=== PATIENT | male | born 1955 | race Caucasian/White ===

== ENCOUNTER 2019-01-06 17:22 | Emergency (ER) | payer OTHER, SELFPAY ==
[2019-01-06] VITALS (12 sets, daily range): BP systolic 98–126; BP diastolic 52–89; PULSE 52–125; RESP 12–22; O2SAT 94–100; BMI 24.6
--- NOTE | 2019-01-06 17:31 | DI.RAD.S_ITS ---
PROCEDURE: XR CHEST 1V INDICATIONS: chest pain TECHNIQUE: One view of the chest was acquired. COMPARISON: None. FINDINGS: Surgical changes and devices: Surgical clips in the thyroid bed. Lungs and pleura: Lungs are clear. No pleural effusions or pneumothorax. Mediastinum: Mediastinal contours appear normal. Heart size is normal. Bones and chest wall: No suspicious bony lesions. Overlying soft tissues appear unremarkable. IMPRESSION: No acute cardiopulmonary disease. Dictated by: Lucrecia Hernandez M.D. on 01/06/2019 at 17:01 Approved by: Lucrecia Hernandez M.D. on 01/06/2019 at 17:02
[2019-01-06 17:54] LABS: Add Manual Diff / Slide Review NO; Basophils Absolute Auto 0 /uL (0-100); Basophils Percent Auto 0.4 % (0-2); Eosinophils Absolute Auto 100 /uL (0-450); Eosinophils Percent Auto 1.6 % (2-4); Hematocrit 45.8 % (41-53); Hemoglobin 15.5 g/dL (13.5-17.5); Lymphocytes Absolute Auto 2600 /uL (1100-4500); Mean Corpuscular HGB Conc 33.8 % (30-36); Mean Corpuscular Hemoglobin 32.2 PG (26-34); Mean Corpuscular Volume 95.4 fL (80-100); Monocytes Absolute Auto 600 /uL (0-900); Monocytes Percent Auto 7.9 % (3-14); Neutrophils Absolute Auto 4000 /uL (1500-7000); Neutrophils Percent Auto 55.1 % (50-75); Platelet Count 203 X10^3/uL (150-400); Red Cell Distribution Width 12.4 % (11.6-14.8); White Blood Cell Count 7.3 X10^3/uL (4.5-11.0)
[2019-01-06 17:58] LABS: INR 1.1 (0.9-1.3); Prothrombin Time 12.6 SECONDS (10.1-12.7)
[2019-01-06 18:01] LABS: PTT Partial Thromboplastin Tim 35 SECONDS (26.4-36.2)
[2019-01-06 18:02] LABS: Alanine Aminotransferase 26 IU/L (21-72); Albumin 4.4 g/dL (3.5-5.0); Albumin Globulin Ratio 1.3 (1.0-2.8); Alkaline Phosphatase 86 U/L (38-126); Aspartate Aminotransferase 27 IU/L (17-59); BUN Creatinine Ratio 22.5 (6-22); Bilirubin Total 0.5 mg/dL (0.2-1.3); Blood Urea Nitrogen 27 mg/dL (9-20); Calcium 9.6 mg/dL (8.4-10.2); Carbon Dioxide 27 mmol/L (22-32); Chloride 106 mmol/L (98-107); Creatine Kinase 168 U/L (55-170); Estimated Glomerular Filt Rate > 60.0 mL/min (>60); Globulin 3.4 g/dL (1.7-4.1); Glucose 107 mg/dL (80-110); HEMOLYSIS < 15 (0-50); Lipase 142 U/L (23-300); Potassium 3.7 mmol/L (3.4-5.1); Sodium 142 mmol/L (137-145); Total Protein 7.8 g/dL (6.3-8.2)
[2019-01-06 18:14] LABS: Troponin I < 0.012 ng/mL (0.01-0.034)
[2019-01-06 18:18] LABS: CKMB % Relative Index 1.6 % (1.5-5.0); Creatine Kinase MB 2.64 ng/mL (<2.37)
--- NOTE | 2019-01-06 18:22 | ED.ARRPALP ---
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 Initially he developed some anterior chest pressure and was short of breath but his complaint now is largely just palpitations. Patient denies any known history of atrial fibrillation but does state he has had a few episodes of palpitations in the past but never had any definitive diagnosis. He denies any ongoing pain, dizziness, weakness or lightheadedness. He is very certain that his symptoms have been present only for the past few hours. He denies any significant change in his diet such as alcohol, nicotine or caffeine. He denies any new medications. He has been a bit stressed lately and has been traveling back and forth from [facility] and here as they begin to transition to living locally. He admits to briefly trying some vagal maneuvers at home, admittedly without success MD complaint: rapid heart beat and heart racing Onset (ago): hour(s) Duration: constant Severity: moderate Context: occurred during rest Associated symptoms: chest pain and shortness of breath Treatments prior to arrival: vagal maneuvers Related Data Home Medications Medication Instructions Recorded Confirmed levothyroxine 112 mcg PO DAILY 01/06/19 01/06/19 Allergies Allergy/AdvReac Type Severity Reaction Status Date / Time erythromycin base AdvReac Nausea Verified 01/06/19 18:52 Review of Systems Constitutional Denies chills, Denies fever(s), Denies lethargy and Denies weakness Eyes Denies change in vision, Denies eye discharge, Denies irritation and Denies loss of vision ENT Ears, Nose, Mouth, and Throat: Denies change in voice, Denies neck pain and Denies sore throat Cardiovascular Reports chest pain, Reports irregular heart rhythm, Reports lightheadedness, Reports palpitations, Reports dyspnea, Denies dyspnea on exertion and Denies orthopnea Respiratory Denies cough, Reports dyspnea, Denies dyspnea on exertion and Denies wheezing Gastrointestinal Gastrointestinal: Denies abdominal pain, Denies change in bowel habits, Denies diarrhea, Denies nausea and Denies vomiting Genitourinary Denies hematuria, Denies flank pain, Denies urinary incontinence and Denies urinary urgency Musculoskeletal Denies neck pain Integumentary/Breasts Denies pruritus, Denies erythema, Denies rash and Denies wounds Neurologic Denies confusion, Denies loss of vision and Denies weakness Psychiatric Denies anxiety, Denies confusion, Denies depression, Denies homicidal ideation and Denies suicidal ideation Endocrine Reports palpitations Hematologic/Lymphatic Denies easy bruising Allergic/Immunologic Denies wheezing PFSH Medical History Hypothyroid (Acute) Social History (Updated 01/07/19 @ 02:18 by Titi Carrasquillo DO) marital status: household members: spouse lives independently: Yes caregiver/support person: No housing: house education level: other occupational status: employed leisure activities: exercise Social History marital status: household members: spouse lives independently: Yes caregiver/support person: No housing: house education level: other occupational status: employed leisure activities: exercise Exam Narrative Exam Narrative: GENERAL: Well-appearing 63-year-old male, appears younger than stated age, in mild distress HEAD: Atraumatic. Normocephalic. No temporal or scalp tenderness. EYES: Pupils equal round and reactive. Extraocular motions intact. No scleral icterus. No injection or drainage. ENT: Nose without bleeding, purulent drainage or septal hematoma. Throat without erythema, tonsillar hypertrophy or exudate. Uvula midline. Airway patent. NECK: Trachea midline. No JVD or lymphadenopathy. Supple, nontender, no meningeal signs. CARDIOVASCULAR: Tachycardic and without murmurs, gallops, or rubs. RESPIRATORY: Clear to auscultation. Breath sounds equal bilaterally. No wheezes, rales, or rhonchi. GASTROINTESTINAL: Abdomen soft, non-tender, nondistended. No hepato-splenomegaly, or palpable masses. No guarding. EXTREMITIES: No clubbing, cyanosis, or edema. No joint tenderness, effusion, or edema noted. BACK: Nontender without deformity or crepitance. No flank tenderness. NEURO: AOx3. SKIN: No rash or erythema. Initial Vital Signs Initial Vital Signs: Vital Signs Pulse Rate 121 H 01/06/19 17:25 Respiratory Rate 16 01/06/19 17:25 Pulse Oximetry 97 07/12/19 17:25 Procedures Cardioversion Consent Signed: Yes Indication: rapid A Fib Cardiac rhythm prior to cardioversion: rapid A fib Stability: Stable Number of attempts (shocks): 1 Joules used: 150 Cardiac rhythm post-cardioversion: NSR Procedural Sedation Patient Age: Patient is 5yrs or older Consent signed: Yes Time out performed: Yes Indication: cardioversion ASA Class: II Mallampati Airway Classification: Class II Preparation: wire mesh knitter applied, pulse oximeter, capnometry used, suction/airway equipment at bedside and IV secured IV Propofol dose (mg): 90 Intraservice time/total sedation time (min): 10 ED Sedation Level: Moderate (Concious) Patient Tolerated Procedure: Well Complications: hypoxia Interventions: Airway repositioned Scores CHADS-VASc Congestive heart failure: no Hypertension: no Age 75 years or older: no Diabetes mellitus: no Stroke, TIA, or TE: no Vascular disease: no Age 65 to 74 years: no Sex category (female): Male CHADS-VASc Score: 0 Course Orders Ordered: ED Orders 01/06/19 17:31 XR chest 1V Stat EKG-12 Lead Stat 01/06/19 17:35 Complete Blood Count AUTO DIFF Stat Comprehensive Metabolic Panel Stat Lipase Stat Partial Thromboplastin Time Stat Prothrombin Time INR Stat Troponin & CK Cardiac Panel Stat Discontinued Medications Diltiazem HCl (Cardizem) 10 mg IV NOW ONE Stop: 01/06/19 18:44 Last Admin: 01/06/19 18:40 Dose: 10 mg Propofol (Diprivan) 90 mg IV NOW ONE Stop: 01/06/19 19:51 Last Admin: 01/06/19 20:14 Dose: 90 mg Reevaluation(s) Reevaluation #1: Patient remained in a a rapid atrial fibrillation after a strong attempt at a modified Valsalva maneuver. Discussion with patient and his at the bedside regarding electrocardioversion and procedural sedation Vital Signs - 8 hr 01/06/19 18:40 01/06/19 18:55 01/06/19 19:30 Pulse Rate 105 H 77 122 H Respiratory Rate 16 18 Blood Pressure 126/89 Blood Pressure [Left Arm] 111/77 107/82 Pulse Oximetry 99 100 01/06/19 19:35 01/06/19 19:40 01/06/19 19:45 Pulse Rate 125 H 61 77 Respiratory Rate 16 18 18 Blood Pressure Blood Pressure [Left Arm] 107/52 L 103/63 102/52 L Pulse Oximetry 100 94 99 01/06/19 19:50 01/06/19 19:55 01/06/19 20:00 Pulse Rate 57 L 54 L 56 L Respiratory Rate 16 16 22 Blood Pressure Blood Pressure [Left Arm] 103/73 98/77 112/76 Pulse Oximetry 98 97 98 01/06/19 20:05 01/06/19 20:10 Pulse Rate 55 L 52 L Respiratory Rate 21 12 Blood Pressure Blood Pressure [Left Arm] 120/80 108/83 Pulse Oximetry 98 98 MDM - Arrhythmia/Palpitations Lab Data Result diagrams: 01/06/19 17:35 01/06/19 17:35 Lab Results 01/06/19 01/06/19 01/06/19 Range/Units 17:35 17:35 17:35 WBC 7.3 (4.5-11.0) X10^3/uL RBC 4.80 (4.5-5.9) X10^6/uL Hgb 15.5 (13.5-17.5) g/dL Hct 45.8 (41-53) % MCV 95.4 (80-100) fL MCH 32.2 (26-34) PG MCHC 33.8 (30-36) % RDW 12.4 (11.6-14.8) % Plt Count 203 (150-400) X10^3/uL Neut % (Auto) 55.1 (50-75) % Lymph % (Auto) 35.0 (25-40) % Moffat % (Auto) 7.9 (3-14) % Eos % (Auto) 1.6 L (2-4) % Baso % (Auto) 0.4 (0-2) % Neut # (Auto) 4000 (4004-4234) /uL Lymph # (Auto) 2600 (3002-8889) /uL M[place]at # (Auto) 600 (0-900) /uL Eos # (Auto) 100 (0-450) /uL Baso # (Auto) 0 (0-100) /uL PT 12.6 (10.1-12.7) SECONDS INR 1.1 (0.9-1.3) APTT 35 (26.4-36.2) SECONDS Sodium 142 (137-145) mmol/L Potassium 3.7 (3.4-5.1) mmol/L Chloride 106 (98-107) mmol/L Carbon Dioxide 27 (22-32) mmol/L BUN 27 H (9-20) mg/dL Creatinine 1.20 (0.66-1.25) mg/dL Estimated GFR > 60.0 (>60) mL/min BUN/Creatinine Ratio 22.5 H (6-22) Glucose 107 (80-110) mg/dL Calcium 9.6 (8.4-10.2) mg/dL Total Bilirubin 0.5 (0.2-1.3) mg/dL AST 27 (17-59) IU/L ALT 26 (21-72) IU/L Alkaline Phosphatase 86 (38-126) U/L Total Creatine Kinase 168 (55-170) U/L CK-MB (CK-2) 2.64 H (<2.37) ng/mL CK-MB (CK-2) Rel Index 1.6 (1.5-5.0) % Troponin I < 0.012 (0.01-0.034) ng/mL Total Protein 7.8 (6.3-8.2) g/dL Albumin 4.4 (3.5-5.0) g/dL Globulin 3.4 (1.7-4.1) g/dL Albumin/Globulin Ratio 1.3 (1.0-2.8) Lipase 142 (23-300) U/L Imaging Data Chest x-ray: Radiologist's impression: [address] [address] XRay Report Signed Patient: Zhou Mcnamara EMR#: [id number] : 6Acct:[id number] Age/Sex: 63 / MDate of Service: 01/06/19 Loc: ED Accession Number: [id number] Procedure: XR chest 1V Ordering Provider: Anabel Boland D.O. PROCEDURE: XR CHEST 1V INDICATIONS: chest pain TECHNIQUE: One view of the chest was acquired. COMPARISON: None. FINDINGS: Surgical changes and devices: Surgical clips in the thyroid bed. Lungs and pleura: Lungs are clear. No pleural effusions or pneumothorax. Mediastinum: Mediastinal contours appear normal. Heart size is normal. Bones and chest wall: No suspicious bony lesions. Overlying soft tissues appear unremarkable. IMPRESSION: No acute cardiopulmonary disease. Dictated by: Lucrecia Hernandez M.D. on 01/06/2019 at 17:01 Approved by: Lucrecia Hernandez M.D. on 01/06/2019 at 17:02 ECG Data Attestation: I personally reviewed and interpreted this ECG as follows: Interpretation: Rapid A Fib at 114 without ischemic change, no ST depressions or elevations Discharge Plan Departure Patient Disposition: Home Clinical Impression: Atrial fibrillation Qualifiers: Atrial fibrillation type: paroxysmal Qualified Code(s): I48.0 - Paroxysmal atrial fibrillation Discharge Date/Time: 01/06/19 20:31 Interventions: ED Discharge Assessment Last Done: 01/06/19 20:29 Instructions: DI for Atrial Fibrillation Activity Restrictions/Additional Instructions: *You have been diagnosed with [paroxysmal atrial fibrillation status post cardioversion] *What to do: *Take medications as directed *Follow up with your primary care provider in 2-3 days, call for an appointment. Let them know you were seen in the Emergency Department and that we ask that you be seen in follow up. I have included contact information for the hospital resource line to help you establish care locally *Return to ER if you should have any new, worsening or concerning symptoms, such as [ ] Prescriptions: No Action levothyroxine 112 mcg tablet 112 mcg PO DAILY RF: 0 Referrals: [facility] [Outside]
[2019-01-06] MEDS: dilTIAZem 5 MG/ML SDV 10 MG IV (18:40)
[2019-01-06] MEDS: PROPOFOL 200 MG/20 ML VIAL 90 MG IV (20:14)
--- NOTE | 2019-01-06 20:19 | ED_ITS ---
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 Initially he developed some anterior chest pressure and was short of breath but his complaint now is largely just palpitations. Patient denies any known history of atrial fibrillation but does state he has had a few episodes of palpitations in the past but never had any definitive diagnosis. He denies any ongoing pain, dizziness, weakness or lightheadedness. He is very certain that his symptoms have been present only for the past few hours. He denies any significant change in his diet such as alcohol, nicotine or caffeine. He denies any new medications. He has been a bit stressed lately and has been traveling back and forth from [facility] and here as they begin to transition to living locally. He admits to briefly trying some vagal maneuvers at home, admittedly without success MD complaint: rapid heart beat and heart racing Onset (ago): hour(s) Duration: constant Severity: moderate Context: occurred during rest Associated symptoms: chest pain and shortness of breath Treatments prior to arrival: vagal maneuvers Related Data Home Medications Medication Instructions Recorded Confirmed levothyroxine 112 mcg PO DAILY 01/06/19 01/06/19 Allergies Allergy/AdvReac Type Severity Reaction Status Date / Time erythromycin base AdvReac Nausea Verified 01/06/19 18:52 Review of Systems Constitutional Denies chills, Denies fever(s), Denies lethargy and Denies weakness Eyes Denies change in vision, Denies eye discharge, Denies irritation and Denies loss of vision ENT Ears, Nose, Mouth, and Throat: Denies change in voice, Denies neck pain and Denies sore throat Cardiovascular Reports chest pain, Reports irregular heart rhythm, Reports lightheadedness, Reports palpitations, Reports dyspnea, Denies dyspnea on exertion and Denies orthopnea Respiratory Denies cough, Reports dyspnea, Denies dyspnea on exertion and Denies wheezing Gastrointestinal Gastrointestinal: Denies abdominal pain, Denies change in bowel habits, Denies diarrhea, Denies nausea and Denies vomiting Genitourinary Denies hematuria, Denies flank pain, Denies urinary incontinence and Denies urinary urgency Musculoskeletal Denies neck pain Integumentary/Breasts Denies pruritus, Denies erythema, Denies rash and Denies wounds Neurologic Denies confusion, Denies loss of vision and Denies weakness Psychiatric Denies anxiety, Denies confusion, Denies depression, Denies homicidal ideation and Denies suicidal ideation Endocrine Reports palpitations Hematologic/Lymphatic Denies easy bruising Allergic/Immunologic Denies wheezing PFSH Medical History Hypothyroid (Acute) Social History (Updated 01/07/19 @ 02:18 by Titi Carrasquillo DO) marital status: household members: spouse lives independently: Yes caregiver/support person: No housing: house education level: other occupational status: employed leisure activities: exercise Social History marital status: household members: spouse lives independently: Yes caregiver/support person: No housing: house education level: other occupational status: employed leisure activities: exercise Exam Narrative Exam Narrative: GENERAL: Well-appearing 63-year-old male, appears younger than stated age, in mild distress HEAD: Atraumatic. Normocephalic. No temporal or scalp tenderness. EYES: Pupils equal round and reactive. Extraocular motions intact. No scleral icterus. No injection or drainage. ENT: Nose without bleeding, purulent drainage or septal hematoma. Throat without erythema, tonsillar hypertrophy or exudate. Uvula midline. Airway patent. NECK: Trachea midline. No JVD or lymphadenopathy. Supple, nontender, no meningeal signs. CARDIOVASCULAR: Tachycardic and without murmurs, gallops, or rubs. RESPIRATORY: Clear to auscultation. Breath sounds equal bilaterally. No wheezes, rales, or rhonchi. GASTROINTESTINAL: Abdomen soft, non-tender, nondistended. No hepato- splenomegaly, or palpable masses. No guarding. EXTREMITIES: No clubbing, cyanosis, or edema. No joint tenderness, effusion, or edema noted. BACK: Nontender without deformity or crepitance. No flank tenderness. NEURO: AOx3. SKIN: No rash or erythema. Initial Vital Signs Initial Vital Signs: Vital Signs Pulse Rate 121 H 01/06/19 17:25 Respiratory Rate 16 01/06/19 17:25 Pulse Oximetry 97 07/12/19 17:25 Procedures Cardioversion Consent Signed: Yes Indication: rapid A Fib Cardiac rhythm prior to cardioversion: rapid A fib Stability: Stable Number of attempts (shocks): 1 Joules used: 150 Cardiac rhythm post-cardioversion: NSR Procedural Sedation Patient Age: Patient is 5yrs or older Consent signed: Yes Time out performed: Yes Indication: cardioversion ASA Class: II Mallampati Airway Classification: Class II Preparation: site monitor applied, pulse oximeter, capnometry used, suction/airway equipment at bedside and IV secured IV Propofol dose (mg): 90 Intraservice time/total sedation time (min): 10 ED Sedation Level: Moderate (Concious) Patient Tolerated Procedure: Well Complications: hypoxia Interventions: Airway repositioned Scores CHADS-VASc Congestive heart failure: no Hypertension: no Age 75 years or older: no Diabetes mellitus: no Stroke, TIA, or TE: no Vascular disease: no Age 65 to 74 years: no Sex category (female): Male CHADS-VASc Score: 0 Course Orders Ordered: ED Orders 01/06/19 17:31 XR chest 1V Stat EKG-12 Lead Stat 01/06/19 17:35 Complete Blood Count AUTO DIFF Stat Comprehensive Metabolic Panel Stat Lipase Stat Partial Thromboplastin Time Stat Prothrombin Time INR Stat Troponin & CK Cardiac Panel Stat Discontinued Medications Diltiazem HCl (Cardizem) 10 mg IV NOW ONE Stop: 01/06/19 18:44 Last Admin: 01/06/19 18:40 Dose: 10 mg Propofol (Diprivan) 90 mg IV NOW ONE Stop: 01/06/19 19:51 Last Admin: 01/06/19 20:14 Dose: 90 mg Reevaluation(s) Reevaluation #1: Patient remained in a a rapid atrial fibrillation after a strong attempt at a modified Valsalva maneuver. Discussion with patient and his at the bedside regarding electrocardioversion and procedural sedation Vital Signs - 8 hr 01/06/19 18:40 01/06/19 18:55 01/06/19 19:30 Pulse Rate 105 H 77 122 H Respiratory Rate 16 18 Blood Pressure 126/89 Blood Pressure [Left Arm] 111/77 107/82 Pulse Oximetry 99 100 01/06/19 19:35 01/06/19 19:40 01/06/19 19:45 Pulse Rate 125 H 61 77 Respiratory Rate 16 18 18 Blood Pressure Blood Pressure [Left Arm] 107/52 L 103/63 102/52 L Pulse Oximetry 100 94 99 01/06/19 19:50 01/06/19 19:55 01/06/19 20:00 Pulse Rate 57 L 54 L 56 L Respiratory Rate 16 16 22 Blood Pressure Blood Pressure [Left Arm] 103/73 98/77 112/76 Pulse Oximetry 98 97 98 01/06/19 20:05 01/06/19 20:10 Pulse Rate 55 L 52 L Respiratory Rate 21 12 Blood Pressure Blood Pressure [Left Arm] 120/80 108/83 Pulse Oximetry 98 98 MDM - Arrhythmia/Palpitations Lab Data Result diagrams: 01/06/19 17:35 01/06/19 17:35 Lab Results 01/06/19 01/06/19 01/06/19 Range/Units 17:35 17:35 17:35 WBC 7.3 (4.5-11.0) X10^3/uL RBC 4.80 (4.5-5.9) X10^6/uL Hgb 15.5 (13.5-17.5) g/dL Hct 45.8 (41-53) % MCV 95.4 (80-100) fL MCH 32.2 (26-34) PG MCHC 33.8 (30-36) % RDW 12.4 (11.6-14.8) % Plt Count 203 (150-400) X10^3/uL Neut % (Auto) 55.1 (50-75) % Lymph % (Auto) 35.0 (25-40) % [place] % (Auto) 7.9 (3-14) % Eos % (Auto) 1.6 L (2-4) % Baso % (Auto) 0.4 (0-2) % Neut # (Auto) 4000 (8447-9963) /uL Lymph # (Auto) 2600 (9632-9120) /uL [place]ill # (Auto) 600 (0-900) /uL Eos # (Auto) 100 (0-450) /uL Baso # (Auto) 0 (0-100) /uL PT 12.6 (10.1-12.7) SECONDS INR 1.1 (0.9-1.3) APTT 35 (26.4-36.2) SECONDS Sodium 142 (137-145) mmol/L Potassium 3.7 (3.4-5.1) mmol/L Chloride 106 (98-107) mmol/L Carbon Dioxide 27 (22-32) mmol/L BUN 27 H (9-20) mg/dL Creatinine 1.20 (0.66-1.25) mg/dL Estimated GFR > 60.0 (>60) mL/min BUN/Creatinine Ratio 22.5 H (6-22) Glucose 107 (80-110) mg/dL Calcium 9.6 (8.4-10.2) mg/dL Total Bilirubin 0.5 (0.2-1.3) mg/dL AST 27 (17-59) IU/L ALT 26 (21-72) IU/L Alkaline Phosphatase 86 (38-126) U/L Total Creatine Kinase 168 (55-170) U/L CK-MB (CK-2) 2.64 H (<2.37) ng/mL CK-MB (CK-2) Rel Index 1.6 (1.5-5.0) % Troponin I < 0.012 (0.01-0.034) ng/mL Total Protein 7.8 (6.3-8.2) g/dL Albumin 4.4 (3.5-5.0) g/dL Globulin 3.4 (1.7-4.1) g/dL Albumin/Globulin Ratio 1.3 (1.0-2.8) Lipase 142 (23-300) U/L Imaging Data Chest x-ray: Radiologist's impression: [address] [address] XRay Report Signed Patient: Zhou Mcnamara EMR#: [id number] : 6Acct:[id number] Age/Sex: 63 / MDate of Service: 01/06/19 Loc: ED Accession Number: [id number] Procedure: XR chest 1V Ordering Provider: Anabel Boland D.O. PROCEDURE: XR CHEST 1V INDICATIONS: chest pain TECHNIQUE: One view of the chest was acquired. COMPARISON: None. FINDINGS: Surgical changes and devices: Surgical clips in the thyroid bed. Lungs and pleura: Lungs are clear. No pleural effusions or pneumothorax. Mediastinum: Mediastinal contours appear normal. Heart size is normal. Bones and chest wall: No suspicious bony lesions. Overlying soft tissues appear unremarkable. IMPRESSION: No acute cardiopulmonary disease. Dictated by: Lucrecia Hernandez M.D. on 01/06/2019 at 17:01 Approved by: Lucrecia Hernandez M.D. on 01/06/2019 at 17:02 ECG Data Attestation: I personally reviewed and interpreted this ECG as follows: Interpretation: Rapid A Fib at 114 without ischemic change, no ST depressions or elevations Discharge Plan Departure Patient Disposition: Home Clinical Impression: Atrial fibrillation Qualifiers: Atrial fibrillation type: paroxysmal Qualified Code(s): I48.0 - Paroxysmal atrial fibrillation Discharge Date/Time: 01/06/19 20:31 Interventions: ED Discharge Assessment Last Done: 01/06/19 20:29 Instructions: DI for Atrial Fibrillation Activity Restrictions/Additional Instructions: *You have been diagnosed with [paroxysmal atrial fibrillation status post cardioversion] *What to do: *Take medications as directed *Follow up with your primary care provider in 2-3 days, call for an appointment. Let them know you were seen in the Emergency Department and that we ask that you be seen in follow up. I have included contact information for the hospital resource line to help you establish care locally *Return to ER if you should have any new, worsening or concerning symptoms, such as [ ] Prescriptions: No Action levothyroxine 112 mcg tablet 112 mcg PO DAILY RF: 0 Referrals: [facility] [Outside]
== END 2019-01-06 20:31 | disposition home or self-care (01) ==
PROVIDERS: Emergency Medicine; Emergency Provider Emergency Medicine
DX: I48.91 Unspecified atrial fibrillation (principal)
CPT/HCPCS: 36591; 71045; 80053; 82550; 82553; 83690; 84484; 85025; 85610; 85730; 92960; 93005; 93041; 94770; 96374; 96375; 99284; 99291; J2704

== ENCOUNTER → 2019-06-19 10:36 | Outpatient (CLI) | payer OTHER, SELFPAY ==
--- NOTE | 2019-06-19 | DI.RAD.S_ITS ---
PROCEDURE: XR PELVIS 1-2V INDICATIONS: LOW BACK PAIN TECHNIQUE: 1 view(s) of the pelvis acquired. COMPARISON: None. FINDINGS: Bones: No fractures or dislocations. No suspicious bony lesions. There are mild degenerative changes of the imaged lower lumbosacral spine Soft tissues: Visualized bowel gas pattern is nonobstructive. IMPRESSION: Mild degenerative changes of the imaged lower lumbosacral spine. Dictated by: Marco Pérez M.D. on 06/19/2019 at 17:53 Approved by: Marco Pérez M.D. on 06/19/2019 at 17:56
--- NOTE | 2019-06-19 | DI.RAD.S_ITS ---
PROCEDURE: XR LUMBAR SPINE 2-3V INDICATIONS: LOW BACK PAIN TECHNIQUE: 3 views of the lumbar spine were acquired. COMPARISON: Same day pelvic radiograph. FINDINGS: Bones: 5 [id number] vertebrae are present. Mild levoscoliosis. No vertebral body compression fractures. Question of L5 pars defect. No significant spondylolisthesis. L5 facet hypertrophy. Mild degenerative change. No suspicious bony lesions. Soft tissues: Overlying bowel gas pattern is normal. No suspicious soft tissue calcifications. IMPRESSION: No acute osseous abnormality. Dictated by: Zhou Lo M.D. on 06/19/2019 at 17:49 Approved by: Zhou Lo M.D. on 06/19/2019 at 17:51
== END ==
PROVIDERS: Visit Provider Internal Medicine
DX: M54.5 Low back pain (principal); M47.817 Spondylosis without myelopathy or radiculopathy, lumbosacral region; I48.91 Unspecified atrial fibrillation
CPT/HCPCS: 72100; 72170

== ENCOUNTER → 2019-07-06 09:31 | Outpatient (CLI) | payer OTHER, SELFPAY | PROVIDERS: PCP Internal Medicine; Visit Provider Internal Medicine Cardiovascular Disease | DX: R00.2 Palpitations (principal); I48.91 Unspecified atrial fibrillation; R00.1 Bradycardia, unspecified | CPT/HCPCS: 36415; 83735 ==

== ENCOUNTER → 2019-11-09 08:02 | Outpatient (CLI) | payer OTHER, SELFPAY ==
[2019-11-09 10:26] LABS: HIV 1 & 2 Ab/Ag 4th Gen Combo NEGATIVE (NEGATIVE); Hep C Virus Ab w/Reflex Quant NEGATIVE s/c (NEGATIVE)
== END ==
PROVIDERS: PCP Internal Medicine; Referring Provider Internal Medicine; Visit Provider Internal Medicine
DX: Z00.00 Encounter for general adult medical examination without abnormal findings (principal)
CPT/HCPCS: 36415; 86803; 87389

== ENCOUNTER → 2020-04-10 19:23 | Outpatient (ROUT) | payer OTHER, SELFPAY ==
[2020-04-10 19:43] LABS: Aspartate Aminotransferase 30 IU/L (17-59); BUN Creatinine Ratio 22.1 (6-22); Blood Urea Nitrogen 25 mg/dL (9-20); Calcium 9.9 mg/dL (8.4-10.2); Carbon Dioxide 30 mmol/L (22-32); Chloride 104 mmol/L (98-107); Cholesterol 190 mg/dL (140-199); Estimated Glomerular Filt Rate > 60.0 mL/min (>60); Glucose 89 mg/dL (80-110); HDL Cholesterol 43 mg/dL (40-60); HEMOLYSIS < 15 (0-50); LDL Cholesterol Calculated 112 mg/dL (<100); Potassium 4.4 mmol/L (3.4-5.1); Sodium 141 mmol/L (137-145); Triglycerides 176 mg/dL (35-150)
[2020-04-10 20:12] LABS: Prostate Specific Antigen 0.187 ng/mL (0.10-4.00); TSH w/ Reflex to FT4 0.13 uIU/mL (0.47-4.68)
[2020-04-10 20:41] LABS: Free T4, Direct Thyroxine 1.33 ng/dL (0.78-2.19)
== END ==
PROVIDERS: PCP Internal Medicine; Visit Provider Internal Medicine
DX: E03.9 Hypothyroidism, unspecified (principal); E78.2 Mixed hyperlipidemia; I48.91 Unspecified atrial fibrillation
CPT/HCPCS: 80048; 80061; 84153; 84439; 84443; 84450

== ENCOUNTER → 2020-04-15 08:04 | Outpatient (CLI) | payer OTHER, SELFPAY ==
[2020-04-15 09:53] LABS: TSH w/ Reflex to FT4 0.12 uIU/mL (0.47-4.68)
[2020-04-15 10:18] LABS: Free T4, Direct Thyroxine 1.31 ng/dL (0.78-2.19)
== END ==
PROVIDERS: PCP Internal Medicine; Referring Provider Internal Medicine; Visit Provider Internal Medicine
DX: E03.9 Hypothyroidism, unspecified (principal)
CPT/HCPCS: 36415; 84439; 84443

== ENCOUNTER → 2020-05-02 07:47 | Outpatient (CLI) | payer OTHER, SELFPAY ==
[2020-05-02 09:59] LABS: Prolactin 8.5 ng/mL (3.7-17.9)
[2020-05-02 10:38] LABS: Free T3, Triiodothyronine Free 3.28 pg/mL (2.77-5.27); Free T4, Direct Thyroxine 1.11 ng/dL (0.78-2.19); T4 Total Thyroxine 8.47 ug/dL (5.5-11.0); Triiodothryronine T3 Uptake 34.5 % (23.5-40.5)
[2020-05-02 10:51] LABS: Thyroid Stimulating Hormone 0.347 uIU/mL (0.47-4.68)
== END ==
PROVIDERS: PCP Internal Medicine; Referring Provider Internal Medicine; Visit Provider Internal Medicine
DX: E78.2 Mixed hyperlipidemia (principal); I48.91 Unspecified atrial fibrillation; E03.9 Hypothyroidism, unspecified
CPT/HCPCS: 36415; 84146; 84436; 84439; 84443; 84479; 84481

== ENCOUNTER → 2020-06-13 08:44 | Outpatient (CLI) | payer OTHER, SELFPAY ==
[2020-06-13 11:03] LABS: TSH w/ Reflex to FT4 1.66 uIU/mL (0.47-4.68)
== END ==
PROVIDERS: PCP Internal Medicine; Referring Provider Internal Medicine; Visit Provider Internal Medicine
DX: E03.9 Hypothyroidism, unspecified (principal)
CPT/HCPCS: 36415; 84443

== ENCOUNTER → 2020-08-12 13:29 | Outpatient (CLI) | payer OTHER, SELFPAY ==
[2020-08-12 16:01] LABS: TSH w/ Reflex to FT4 1.21 uIU/mL (0.47-4.68)
== END ==
PROVIDERS: PCP Internal Medicine; Referring Provider Internal Medicine; Visit Provider Internal Medicine
DX: E03.9 Hypothyroidism, unspecified (principal)
CPT/HCPCS: 36415; 84443

== ENCOUNTER → 2020-10-14 10:13 | Outpatient (CLI) | payer OTHER, SELFPAY ==
[2020-10-14 11:59] LABS: COVID19 - ADMIT (NP swab/PCR) Negative (Negative)
== END ==
PROVIDERS: PCP Internal Medicine; Visit Provider Student in an Organized Health Care Education/Training Program
DX: Z20.822 Contact with and (suspected) exposure to COVID-19 (principal)
CPT/HCPCS: U0003

== ENCOUNTER → 2020-10-28 18:46 | Outpatient (ROUT) | payer OTHER, SELFPAY ==
[2020-10-28 20:10] LABS: TSH w/ Reflex to FT4 1.96 uIU/mL (0.47-4.68)
== END ==
PROVIDERS: PCP Internal Medicine; Visit Provider Internal Medicine
DX: E03.9 Hypothyroidism, unspecified (principal)
CPT/HCPCS: 84443

== ENCOUNTER 2021-05-20 12:29 | Emergency (ER) | payer OTHER, SELFPAY ==
[2021-05-20 12:44] VITALS: BP 146/82; PULSE 70; RESP 18; TEMP 36.2; O2SAT 99
--- NOTE | 2021-05-20 13:02 | DI.RAD.S_ITS ---
PROCEDURE: XR CHEST 1V INDICATIONS: pain w/ deep inspiration, upper abd pain TECHNIQUE: One view of the chest was acquired. COMPARISON: [facility], CR, XR CHEST 1V, 01/06/2019, 17:48. FINDINGS: Surgical changes and devices: Stable appearance of surgical clips in the thyroid bed. Lungs and pleura: Lungs are clear. No pleural effusions or pneumothorax. Mediastinum: Mediastinal contours appear normal. Heart size is normal. Bones and chest wall: No suspicious bony lesions. Overlying soft tissues appear unremarkable. IMPRESSION: Stable radiographic evaluation of the chest without acute cardiopulmonary abnormalities or focal airspace disease. Dictated by: Antonio Rosario M.D. on 05/20/2021 at 13:54 Approved by: Antonio Rosraio M.D. on 05/20/2021 at 13:55
[2021-05-20 13:03] VITALS: BP 133/77; PULSE 56; RESP 15; O2SAT 97
[2021-05-20 13:06] LABS: Add Manual Diff / Slide Review NO; Basophils Absolute Auto 0 /uL (0-100); Basophils Percent Auto 0.5 % (0-2); Eosinophils Absolute Auto 100 /uL (0-450); Eosinophils Percent Auto 1.2 % (2-4); Hematocrit 45.4 % (41-53); Hemoglobin 15.4 g/dL (13.5-17.5); Lymphocytes Absolute Auto 1600 /uL (1100-4500); Lymphocytes Percent Auto 30.9 % (25-40); Mean Corpuscular Hemoglobin 31.9 PG (26-34); Mean Corpuscular Volume 94.1 fL (80-100); Monocytes Absolute Auto 300 /uL (0-900); Monocytes Percent Auto 6.1 % (3-14); Neutrophils Absolute Auto 3300 /uL (1500-7000); Neutrophils Percent Auto 61.3 % (50-75); Platelet Count 200 X10^3/uL (150-400); Red Blood Cell Count 4.83 X10^6/uL (4.5-5.9); Red Cell Distribution Width 11.8 % (11.6-14.8); White Blood Cell Count 5.3 X10^3/uL (4.5-11.0)
[2021-05-20 13:16] LABS: INR 1.1 (0.9-1.3); Prothrombin Time 12.7 SECONDS (10.1-12.7)
[2021-05-20 13:19] LABS: PTT Partial Thromboplastin Tim 35 SECONDS (26.4-36.2)
[2021-05-20 13:21] LABS: D Dimer < 200 ng/mL (<230)
[2021-05-20 13:24] LABS: Alanine Aminotransferase 27 IU/L (<50); Albumin 4.4 g/dL (3.5-5.0); Albumin Globulin Ratio 1.5 (1.0-2.8); Alkaline Phosphatase 66 U/L (38-126); Aspartate Aminotransferase 35 IU/L (17-59); BUN Creatinine Ratio 12.1 (6-22); Bilirubin Total 0.5 mg/dL (0.2-1.3); Blood Urea Nitrogen 13 mg/dL (9-20); Calcium 9.3 mg/dL (8.4-10.2); Carbon Dioxide 26 mmol/L (22-32); Chloride 106 mmol/L (98-107); Creatine Kinase 127 U/L (55-170); Estimated Glomerular Filt Rate > 60.0 mL/min (>60); Glucose 105 mg/dL (80-110); Lipase 100 U/L (23-300); Potassium 4.1 mmol/L (3.4-5.1); Sodium 139 mmol/L (137-145); Total Protein 7.4 g/dL (6.3-8.2)
[2021-05-20 13:25] LABS: Magnesium 2.2 mg/dL (1.6-2.3)
[2021-05-20 13:26] LABS: HEMOLYSIS 53 (0-50)
[2021-05-20 13:30] VITALS: BP 126/72; PULSE 56; RESP 16; O2SAT 97
[2021-05-20 13:34] LABS: Troponin I < 0.012 ng/mL (0.01-0.034)
[2021-05-20 14:00] VITALS: BP 129/71; PULSE 56; RESP 15; O2SAT 98
[2021-05-20] MEDS: KETOROLAC 30 MG/ML VIAL 15 MG IV (14:16)
[2021-05-20 14:30] VITALS: BP 132/77; PULSE 51; RESP 15; O2SAT 97
[2021-05-20 15:00] VITALS: BP 133/78; PULSE 51; RESP 14; O2SAT 98
--- NOTE | 2021-05-27 10:38 | ED_ITS ---
HPI - Abdominal Pain <Aarti Gee PA-C - Last Filed: 05/27/21 10:54> General Chief Complaint: Abdominal Pain Stated Complaint: abdomnial pain Time Seen by Provider: 05/20/21 13:00 Source: patient Mode of arrival: Ambulatory Limitations: no limitations History of Present Illness HPI narrative: 65-year-old male with past medical history hypothyroidism presents to the ED with 3 days of upper abdominal pain. Patient states that the pains spans across his upper abdomen. pain is aggravated with movements such is crunches, twisting. Relieved by rest. Patient states that he has recently started new physical activities including biking and abdominal crunches. Patient denies fever, chills, chest pain, cough, shortness of breath, nausea, vomiting, flank pain, dysuria, lightheadedness, dizziness, syncope. Patient has not tried taking any medications for his symptoms. Related Data Home Medications Medication Instructions Recorded Confirmed levothyroxine 112 mcg tablet 112 mcg PO DAILY 01/06/19 05/20/21 clopidogrel 75 mg tablet (Plavix) 75 mg PO DAILY 05/20/21 05/20/21 gabapentin 100 mg capsule 100 mg PO DAILY 05/20/21 05/20/21 metoprolol succinate 25 mg 25 mg PO DAILY 05/20/21 05/20/21 tablet,extended release 24 hr Allergies Allergy/AdvReac Type Severity Reaction Status Date / Time erythromycin base AdvReac Nausea Verified 05/20/21 12:07 Review of Systems <Aarti Gee PA-C - Last Filed: 05/27/21 10:54> Review of Systems ROS Unobtainable: All systems reviewed & are unremarkable except as noted in HPI and below Constitutional Constitutional: Denies chills, Denies fatigue, Denies fever(s), Denies frequent falls, Denies lethargy and Denies weakness Eyes Eyes: Denies change in vision, Denies eye discharge, Denies irritation and Denies loss of vision ENT Ears, Nose, Mouth, and Throat: Denies change in voice, Denies dizziness, Denies neck pain, Denies sore throat and Denies throat swelling Cardiovascular Cardiovascular: Denies chest pain, Denies irregular heart rhythm, Denies lightheadedness, Denies palpitations, Denies dyspnea, Denies dyspnea on exertion and Denies orthopnea Respiratory Respiratory: Denies cough, Denies dyspnea, Denies dyspnea on exertion and Denies wheezing Gastrointestinal Gastrointestinal: Reports abdominal pain, Denies change in bowel habits, Denies diarrhea, Denies nausea and Denies vomiting Genitourinary Genitourinary: Denies hematuria, Denies flank pain, Denies urinary incontinence and Denies urinary urgency Musculoskeletal Musculoskeletal: Denies back pain, Denies muscle weakness, Denies neck pain, Denies numbness and Denies tingling Integumentary/Breasts Skin/Breast: Denies pruritus, Denies erythema, Denies rash and Denies wounds Neurologic Neurologic: Denies behavioral changes, Denies confusion, Denies dizziness, D enies frequent falls, Denies loss of vision, Denies numbness, Denies tingling and Denies weakness Psychiatric Psychiatric: Denies anxiety, Denies behavioral changes, Denies confusion, Denies depression, Denies homicidal ideation and Denies suicidal ideation Endocrine Endocrine: Denies fatigue, Denies flushing and Denies palpitations Hematologic/Lymphatic Hematologic/Lymphatic: Denies easy bruising Allergic/Immunologic Allergic/Immunologic: Denies urticaria, Denies throat swelling and Denies wheezing Patient History <Aarti Gee PA-C - Last Filed: 05/27/21 10:54> Medical History Hypothyroid Social History marital status: household members: spouse lives independently: Yes caregiver/support person: No housing: house education level: other occupational status: employed leisure activities: exercise Smoking Status: Never smoker Smoking Status: Never smoker alcohol intake frequency: 0-2 drinks per day Substance Use Type: does not use Exam <Aarti Gee PA-C - Last Filed: 05/27/21 10:54> Initial Vital Signs Initial Vital Signs: Vital Signs Temperature 97.1 F L 05/20/21 12:44 Pulse Rate 70 05/20/21 12:44 Respiratory Rate 18 05/20/21 12:44 Blood Pressure 146/82 H 05/20/21 12:44 Pulse Oximetry 99 05/20/21 12:44 Const General: cooperative and healthy appearing HENDC Head: normal to inspection Eyes General: appearance normal, both eyes and all related structures Neck Neck: normal visual inspection Resp Effort & Inspection: normal respiratory effort Auscultation: clear to auscultation bilaterally Cardio Rate: regular rate Rhythm: regular rhythm GI Inspection: normal to inspection Palpation: soft Other: Abdomen is soft, nondistended, nontender to palpation. Patient's pain not reproducible with palpation. Patient able to reproduce his pain with movements. No CVA tenderness. General: No CVA tenderness Skin General: no rashes or lesions noted Neuro General: patient alert, patient awake and patient oriented x3 <DO Cayetano Ken Last Filed: 05/29/21 00:03> Initial Vital Signs Initial Vital Signs: Vital Signs Temperature 97.1 F L 05/20/21 12:44 Pulse Rate 70 05/20/21 12:44 Respiratory Rate 18 05/20/21 12:44 Blood Pressure 146/82 H 05/20/21 12:44 Pulse Oximetry 99 05/20/21 12:44 Course <Aarti Gee PA-C - Last Filed: 05/27/21 10:54> Orders Ordered: Discontinued Medications Ketorolac Tromethamine (Ketorolac 30 Mg/Ml Vial) 15 mg IV NOW ONE Stop: 05/20/21 13:52 Last Admin: 05/20/21 14:16 Dose: 15 mg Documented by: JORDAN <DO Cayetano Ken Last Filed: 05/29/21 00:03> Orders Ordered: Discontinued Medications Ketorolac Tromethamine (Ketorolac 30 Mg/Ml Vial) 15 mg IV NOW ONE Stop: 05/20/21 13:52 Last Admin: 05/20/21 14:16 Dose: 15 mg Documented by: JORDAN MDM - Abdominal Pain <CHAPARRITA Herman Last Filed: 05/27/21 10:54> Medical Records Attestation: I reviewed the patient's medical records. Lab Data Result diagrams: 05/20/21 12:55 05/20/21 12:55 Labs: Lab Results 05/20/21 05/20/21 05/20/21 Range/Units 12:55 12:55 12:55 WBC 5.3 (4.5-11.0) X10^3/uL RBC 4.83 (4.5-5.9) X10^6/uL Hgb 15.4 (13.5-17.5) g/dL Hct 45.4 (41-53) % MCV 94.1 (80-100) fL MCH 31.9 (26-34) PG MCHC 34.0 (30-36) % RDW 11.8 (11.6-14.8) % Plt Count 200 (150-400) X10^3/uL Neut % (Auto) 61.3 (50-75) % Lymph % (Auto) 30.9 (25-40) % [place] % (Auto) 6.1 (3-14) % Eos % (Auto) 1.2 L (2-4) % Baso % (Auto) 0.5 (0-2) % Neut # (Auto) 3300 (4546-7736) /uL Lymph # (Auto) 1600 (5015-3359) /uL [place] # (Auto) 300 (0-900) /uL Eos # (Auto) 100 (0-450) /uL Baso # (Auto) 0 (0-100) /uL PT 12.7 (10.1-12.7) SECONDS INR 1.1 (0.9-1.3) APTT 35 (26.4-36.2) SECONDS D-Dimer (<230) ng/mL Sodium 139 (137-145) mmol/L Potassium 4.1 (3.4-5.1) mmol/L Chloride 106 (98-107) mmol/L Carbon Dioxide 26 (22-32) mmol/L BUN 13 (9-20) mg/dL Creatinine 1.07 (0.66-1.25) mg/dL Estimated GFR > 60.0 (>60) mL/min BUN/Creatinine Ratio 12.1 (6-22) Glucose 105 (80-110) mg/dL Calcium 9.3 (8.4-10.2) mg/dL Magnesium (1.6-2.3) mg/dL Total Bilirubin 0.5 (0.2-1.3) mg/dL AST 35 (17-59) IU/L ALT 27 (<50) IU/L Alkaline Phosphatase 66 (38-126) U/L Total Creatine Kinase 127 (55-170) U/L CK-MB (CK-2) 1.30 (<2.37) ng/mL CK-MB (CK-2) Rel Index 1.0 L (1.5-5.0) % Troponin I < 0.012 (0.01-0.034) ng/mL Total Protein 7.4 (6.3-8.2) g/dL Albumin 4.4 (3.5-5.0) g/dL Globulin 3.0 (1.7-4.1) g/dL Albumin/Globulin Ratio 1.5 (1.0-2.8) Lipase 100 (23-300) U/L 05/20/21 05/20/21 Range/Units 12:55 12:55 WBC (4.5-11.0) X10^3/uL RBC (4.5-5.9) X10^6/uL Hgb (13.5-17.5) g/dL Hct (41-53) % MCV (80-100) fL MCH (26-34) PG MCHC (30-36) % RDW (11.6-14.8) % Plt Count (150-400) X10^3/uL Neut % (Auto) (50-75) % Lymph % (Auto) (25-40) % [place] % (Auto) (3-14) % Eos % (Auto) (2-4) % Baso % (Auto) (0-2) % Neut # (Auto) (5032-3295) /uL Lymph # (Auto) (6115-8521) /uL [place] # (Auto) (0-900) /uL Eos # (Auto) (0-450) /uL Baso # (Auto) (0-100) /uL PT (10.1-12.7) SECONDS INR (0.9-1.3) APTT (26.4-36.2) SECONDS D-Dimer < 200 (<230) ng/mL Sodium (137-145) mmol/L Potassium (3.4-5.1) mmol/L Chloride (98-107) mmol/L Carbon Dioxide (22-32) mmol/L BUN (9-20) mg/dL Creatinine (0.66-1.25) mg/dL Estimated GFR (>60) mL/min BUN/Creatinine Ratio (6-22) Glucose (80-110) mg/dL Calcium (8.4-10.2) mg/dL Magnesium 2.2 (1.6-2.3) mg/dL Total Bilirubin (0.2-1.3) mg/dL AST (17-59) IU/L ALT (<50) IU/L Alkaline Phosphatase (38-126) U/L Total Creatine Kinase (55-170) U/L CK-MB (CK-2) (<2.37) ng/mL CK-MB (CK-2) Rel Index (1.5-5.0) % Troponin I (0.01-0.034) ng/mL Total Protein (6.3-8.2) g/dL Albumin (3.5-5.0) g/dL Globulin (1.7-4.1) g/dL Albumin/Globulin Ratio (1.0-2.8) Lipase (23-300) U/L Imaging Data Chest x-ray: Radiologist's Impression: PROCEDURE:? XR CHEST 1V ? INDICATIONS:? pain w/ deep inspiration, upper abd pain ? TECHNIQUE:? One view of the chest was acquired.? ? COMPARISON:? [facility], , XR CHEST 1V, 01/06/2019, 17:48. ? FINDINGS:? ? Surgical changes and devices:? Stable appearance of surgical clips in the thyroid bed.? ? Lungs and pleura:? Lungs are clear.? No pleural effusions or pneumothorax.? ? Mediastinum:? Mediastinal contours appear normal.? Heart size is normal.? ? Bones and chest wall:? No suspicious bony lesions.? Overlying soft tissues appear unremarkable.? ? IMPRESSION:? Stable radiographic evaluation of the chest without acute cardiopulmonary abnormalities or focal airspace disease. ? ? ? Dictated by: Antonio Rosario M.D. on 05/20/2021 at 13:54 ? ? Approved by: Antonio Rosario M.D. on 05/20/2021 at 13:55 ? [facility] Narrative Medical decision making narrative: 65-year-old male with past medical history hypothyroidism presents to the ED with 3 days of upper abdominal pain. Concern for ACS versus PE versus musculoskeletal sprain/ strain. Will order labs, troponin, EKG, chest x-ray, D- dimer. will treat patient's pain with Toradol. Will reassess. Patient's workup negative. Patient's symptoms greatly improved with Toradol. Patient's symptoms likely due to musculoskeletal sprain/strain patient. discharged patient with ED return precautions. Patient verbalized understanding. <Gus King DO - Last Filed: 05/29/21 00:03> Lab Data Labs: Lab Results 05/20/21 05/20/21 05/20/21 Range/Units 12:55 12:55 12:55 WBC 5.3 (4.5-11.0) X10^3/uL RBC 4.83 (4.5-5.9) X10^6/uL Hgb 15.4 (13.5-17.5) g/dL Hct 45.4 (41-53) % MCV 94.1 (80-100) fL MCH 31.9 (26-34) PG MCHC 34.0 (30-36) % RDW 11.8 (11.6-14.8) % Plt Count 200 (150-400) X10^3/uL Neut % (Auto) 61.3 (50-75) % Lymph % (Auto) 30.9 (25-40) % [place] % (Auto) 6.1 (3-14) % Eos % (Auto) 1.2 L (2-4) % Baso % (Auto) 0.5 (0-2) % Neut # (Auto) 3300 (4588-5563) /uL Lymph # (Auto) 1600 (4839-1150) /uL [place] # (Auto) 300 (0-900) /uL Eos # (Auto) 100 (0-450) /uL Baso # (Auto) 0 (0-100) /uL PT 12.7 (10.1-12.7) SECONDS INR 1.1 (0.9-1.3) APTT 35 (26.4-36.2) SECONDS D-Dimer (<230) ng/mL Sodium 139 (137-145) mmol/L Potassium 4.1 (3.4-5.1) mmol/L Chloride 106 (98-107) mmol/L Carbon Dioxide 26 (22-32) mmol/L BUN 13 (9-20) mg/dL Creatinine 1.07 (0.66-1.25) mg/dL Estimated GFR > 60.0 (>60) mL/min BUN/Creatinine Ratio 12.1 (6-22) Glucose 105 (80-110) mg/dL Calcium 9.3 (8.4-10.2) mg/dL Magnesium (1.6-2.3) mg/dL Total Bilirubin 0.5 (0.2-1.3) mg/dL AST 35 (17-59) IU/L ALT 27 (<50) IU/L Alkaline Phosphatase 66 (38-126) U/L Total Creatine Kinase 127 (55-170) U/L CK-MB (CK-2) 1.30 (<2.37) ng/mL CK-MB (CK-2) Rel Index 1.0 L (1.5-5.0) % Troponin I < 0.012 (0.01-0.034) ng/mL Total Protein 7.4 (6.3-8.2) g/dL Albumin 4.4 (3.5-5.0) g/dL Globulin 3.0 (1.7-4.1) g/dL Albumin/Globulin Ratio 1.5 (1.0-2.8) Lipase 100 (23-300) U/L 05/20/21 05/20/21 Range/Units 12:55 12:55 WBC (4.5-11.0) X10^3/uL RBC (4.5-5.9) X10^6/uL Hgb (13.5-17.5) g/dL Hct (41-53) % MCV (80-100) fL MCH (26-34) PG MCHC (30-36) % RDW (11.6-14.8) % Plt Count (150-400) X10^3/uL Neut % (Auto) (50-75) % Lymph % (Auto) (25-40) % [place] % (Auto) (3-14) % Eos % (Auto) (2-4) % Baso % (Auto) (0-2) % Neut # (Auto) (9371-8567) /uL Lymph # (Auto) (1349-2750) /uL [place] # (Auto) (0-900) /uL Eos # (Auto) (0-450) /uL Baso # (Auto) (0-100) /uL PT (10.1-12.7) SECONDS INR (0.9-1.3) APTT (26.4-36.2) SECONDS D-Dimer < 200 (<230) ng/mL Sodium (137-145) mmol/L Potassium (3.4-5.1) mmol/L Chloride (98-107) mmol/L Carbon Dioxide (22-32) mmol/L BUN (9-20) mg/dL Creatinine (0.66-1.25) mg/dL Estimated GFR (>60) mL/min BUN/Creatinine Ratio (6-22) Glucose (80-110) mg/dL Calcium (8.4-10.2) mg/dL Magnesium 2.2 (1.6-2.3) mg/dL Total Bilirubin (0.2-1.3) mg/dL AST (17-59) IU/L ALT (<50) IU/L Alkaline Phosphatase (38-126) U/L Total Creatine Kinase (55-170) U/L CK-MB (CK-2) (<2.37) ng/mL CK-MB (CK-2) Rel Index (1.5-5.0) % Troponin I (0.01-0.034) ng/mL Total Protein (6.3-8.2) g/dL Albumin (3.5-5.0) g/dL Globulin (1.7-4.1) g/dL Albumin/Globulin Ratio (1.0-2.8) Lipase (23-300) U/L Discharge Plan Departure Patient Disposition: Home Clinical Impression: Abdominal pain Instructions: DI for Abdominal Pain-Adult Activity Restrictions/Additional Instructions: You were evaluated in the ED today for abdominal pain. Your workup including labs, EKG, chest x-ray were normal. Your physical exam was very reassuring. Your symptoms responded well to Toradol. Your symptoms are likely due to a musculoskeletal sprain or strain. You may continue to take ibuprofen or Tylenol for your symptoms. Return to the ED if your symptoms worsen you experience fever, chills, nausea, vomiting. Follow-up with your PCP for further management. Prescriptions: No Action gabapentin 100 mg capsule 100 mg PO DAILY 0RF clopidogrel [Plavix] 75 mg tablet 75 mg PO DAILY 0RF metoprolol succinate 25 mg tablet extended release 24 hr 25 mg PO DAILY 0RF levothyroxine 112 mcg tablet 112 mcg PO DAILY 0RF Referrals: Jitendra Major MD [Primary Care Provider] - <Gus King DO - Last Filed: 05/29/21 00:03> Cosign ED Attending Edgarature Attestation: Dr King Co-Sign Statement: I was available for consultation during this patient's emergency department visit. This chart is signed by myself for administrative purposes only. I did not have direct contact with this patient during this visit. They were seen independently by the APC.
== END 2021-05-20 15:27 | disposition home or self-care (01) ==
PROVIDERS: Emergency Medicine; Emergency Provider Student in an Organized Health Care Education/Training Program; PCP Internal Medicine
DX: R10.10 Upper abdominal pain, unspecified (principal); R03.0 Elevated blood-pressure reading, without diagnosis of hypertension
CPT/HCPCS: 36415; 71045; 80053; 82550; 82553; 83690; 83735; 84484; 85025; 85379; 85610; 85730; 93005; 96374; 99284; J1885

== ENCOUNTER → 2021-06-06 12:16 | Outpatient (CLI) | payer OTHER, SELFPAY ==
[2021-06-06 13:49] LABS: Appearance Urine UA CLEAR; Bilirubin Urine UA NEGATIVE (NEGATIVE); Color Urine UA YELLOW; Glucose Urine UA NEGATIVE (Negative); Ketones Urine UA NEGATIVE (NEGATIVE); Leukocyte Esterase Urine UA NEGATIVE (NEGATIVE); Nitrite Urine UA NEGATIVE (Negative); Occult Blood Urine UA NEGATIVE (Negative); Protein Urine UA NEGATIVE (Negative); Specific Gravity Urine UA <=1.005 (1.000-1.035); Urobilinogen Urine UA 0.2 E.U./dL (0.2)
[2021-06-06 14:02] LABS: Bacteria Urine None Seen; RBC Urine None Seen (0-5/HPF); Squamous Epithelial Cell Urine 0-1 /HPF (0-5/HPF); WBC Urine None Seen (0-5/HPF)
== END ==
PROVIDERS: PCP Internal Medicine; Referring Provider Internal Medicine; Visit Provider Internal Medicine
DX: R39.9 Unspecified symptoms and signs involving the genitourinary system (principal)
CPT/HCPCS: 81001; 87086

== ENCOUNTER → 2025-02-05 08:48 | Outpatient (CLI) | payer OTHER, SELFPAY ==
--- NOTE | 2025-02-05 09:07 | DI.MRI.S_ITS ---
PROCEDURE: MR THORACIC SPINE WO CON INDICATIONS: Thoracic spondylosis TECHNIQUE: Noncontrast sagittal T1 spine echo and T2 fast spin echo, sagittal STIR, coronal T2 fast spin echo, and axial T2 fast spin echo through the thoracic spine. COMPARISON: None. FINDINGS: Image quality: Excellent. Alignment and Curvature: Mild dextroconvex curvature at the mid to lower thoracic spine. Bone Marrow: Mild osseous edema in the left pedicles and transverse processes at the T3 and T4 levels. No fracture line is seen. Marrow is of normal overall signal. No acute vertebral body compression fractures. Spinal Cord: Visualized spinal cord is normal in size and signal. Paraspinous Soft Tissues: No paravertebral masses. Miscellaneous: On axial images, central canal and foramina appear widely patent at all scanned levels. IMPRESSION: 1. Mild nonspecific osseous edema at the left pedicles and transverse processes of the T3 and T4 vertebrae, possibly related to osseous contusions or repetitive stress. No fracture line is seen. 2. Mild dextroconvex curvature. No significant spinal canal stenosis or neural foraminal narrowing is seen. Approved by: Anthony Hu M.D. on 02/05/2025 at 13:27
== END ==
LOC: MRI 08:50
PROVIDERS: PCP Internal Medicine; Referring Provider Physician Assistant; Visit Provider Physician Assistant
DX: M43.22 Fusion of spine, cervical region (principal); M47.814 Spondylosis without myelopathy or radiculopathy, thoracic region; R26.89 Other abnormalities of gait and mobility; R29.898 Other symptoms and signs involving the musculoskeletal system
CPT/HCPCS: 72146